=== PATIENT | male | born 2000 | race Caucasian/White ===

== ENCOUNTER 2022-02-04 23:00 | Emergency (ER) | payer BC, SELFPAY ==
[2022-02-04 23:16] VITALS: BP 121/55; PULSE 61; RESP 16; TEMP 36.7; O2SAT 98; BMI 18.4
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
[2022-02-05] VITALS: BP 124/66; PULSE 60; O2SAT 98
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
[2022-02-05 00:58] VITALS: BP 111/61; PULSE 55; RESP 14; TEMP 36.6; O2SAT 100
== END 2022-02-05 01:05 | disposition home or self-care (01) ==
LOC: ER 23:08
PROVIDERS: Emergency Provider Emergency Medicine; PCP Emergency Medicine
DX: S09.93XA Unspecified injury of face, initial encounter (principal); S23.9XXA Sprain of unspecified parts of thorax, initial encounter; Y04.2XXA Assault by strike against or bumped into by another person, initial encounter; Z79.899 Other long term (current) drug therapy; Z88.0 Allergy status to penicillin; Z72.0 Tobacco use
CPT/HCPCS: 70486; 72125; 72128; 72131; 99285

== ENCOUNTER → 2022-02-05 12:04 | Outpatient (CLI) | payer BC, SELFPAY ==
[2022-02-05 21:52] LABS: Amphetamine/Metha Screen,Urine Negative ng/ml (<1000)
[2022-02-05 21:53] LABS: Barbiturates Screen,Urine Negative ng/ml (<200); Benzodiazepines Screen,Urine Negative ng/ml (<200)
[2022-02-05 21:54] LABS: Cannabinoid Screen,Urine Positive ng/ml (<50)
[2022-02-05 21:55] LABS: Cocaine Screen,Urine Negative ng/ml (<300)
[2022-02-05 21:56] LABS: Methadone Screen,Urine Negative ng/ml (<300); Opiate Screen,Urine Negative ng/ml (<300)
[2022-02-05 21:58] LABS: Phencyclidine Screen,Urine Negative ng/ml (<25)
== END ==
PROVIDERS: PCP Emergency Medicine; Visit Provider Emergency Medicine
DX: M54.9 Dorsalgia, unspecified (principal)
CPT/HCPCS: 80305